=== PATIENT | female | born 1985 | race Caucasian/White ===

== ENCOUNTER 2017-11-08 13:28 | Emergency (ER) | payer MEDICAID ==
[2017-11-08 13:58] VITALS: BP 114/87
--- NOTE | 2017-11-08 14:35 | ED Physician Documentation ---
History of Present Illness - Stated complaint Stated Complaint: LEFT EYE PX - Chief complaint Chief Complaint: Heent - Additonal information Additional information: hx from pt 32 f awoke with L eye redness yesterday no trauma no dc no contacts Review of Systems Eyes: reports: Irritation PD PAST MEDICAL HISTORY - Past Medical History Past Medical History: Yes Psych: Depression - Past Surgical History Past Surgical History: No - Present Medications Home Medications: Ambulatory Orders Medication Instructions Recorded Confirmed Citalopram [CeleXA] 10 mg 11/08/17 Levothyroxine [Synthroid] 75 mcg PO QDAC 11/08/17 11/08/17 Propylene Glycol/Peg 400 1 drops LEFTEYE Q1H PRN #1 bottle 11/08/17 [Lubricant Eye Drops] - Allergies Allergies/Adverse Reactions: Allergies Allergy/AdvReac Type Severity Reaction Status Date / Time No Known Drug Allergies Allergy Verified 11/08/17 13:58 - Social History Does the pt smoke?: No Smoking Status: Never smoker Does the pt drink ETOH?: Yes Does the pt have substance abuse?: No - Immunizations Immunizations are current?: Yes PD ED PE NORMAL - Vitals Vital signs reviewed: Yes - HEENT HEENT: PERRL, EOMI, Other (L eye superior subconj hemorrhage, no ant chamer blood, no dc, no abrasion with flourescein, no FB even under lid) Results - Vitals Vitals: Vital Signs - 24 hr 11/08/17 13:56 Temperature 36.3 C L Heart Rate 77 Respiratory 18 Rate Blood Pressure 114/87 H O2 Saturation 98 Oxygen O2 Source Room air PD MEDICAL DECISION MAKING - Sepsis Event Vital Signs: Vital Signs - 24 hr 11/08/17 13:56 Temperature 36.3 C L Heart Rate 77 Respiratory 18 Rate Blood Pressure 114/87 H O2 Saturation 98 Oxygen O2 Source Room air Departure - Departure Disposition: Home, Self Care Clinical Impression: Subconjunctival hematoma Qualifiers: Laterality: left Qualified Code(s): H11.32 - Conjunctival hemorrhage, left eye Condition: Good Instructions: Subconjunctival Hemorrhage Prescriptions: Propylene Glycol/Peg 400 [Lubricant Eye Drops] 1 drops LEFTEYE Q1H PRN #1 bottle PRN Reason: eye irritation
== END 2017-11-08 14:40 | disposition home or self-care (01) ==
LOC: ED 13:28
DX: H11.32 Conjunctival hemorrhage, left eye (principal)
CPT/HCPCS: 99282; 99283

== ENCOUNTER 2017-12-28 21:29 | Emergency (ER) | payer MEDICAID ==
[2017-12-28 21:34] VITALS: BP 150/103
--- NOTE | 2017-12-28 21:36 | ED Physician Documentation ---
PD HPI URI - Stated complaint Stated Complaint: COUGH/NECK PX - Chief complaint Chief Complaint: General - History obtained from History obtained from: Patient - History of Present Illness Timing - onset: How many weeks ago (2) Timing duration: Weeks (2) Timing details: Gradual onset, Waxing and waning Associated symptoms: Swollen nodes, Dry cough (has had cough for 2 weeks and past 1-2 days is having right neck pain with coughing.). No: Fever, Ear pain Contributing factors: No: Sick contact, COPD / asthma Similar symptoms before: Has not had sx before Recently seen: Not recently seen Review of Systems Constitutional: denies: Fever, Chills, Myalgias Eyes: denies: Loss of vision Nose: reports: Congestion. denies: Rhinorrhea / runny nose Throat: denies: Sore throat Respiratory: reports: Dyspnea, Cough GI: denies: Nausea, Vomiting, Diarrhea Skin: denies: Rash, Lesions Neurologic: denies: Altered mental status, Headache PD PAST MEDICAL HISTORY - Past Medical History Cardiovascular: None Respiratory: None Neuro: None Psych: Depression - Past Surgical History Past Surgical History: No - Present Medications Home Medications: Ambulatory Orders Medication Instructions Recorded Confirmed Azithromycin [Zithromax] 0 mg PO DAILY #6 tablet 12/28/17 Dexamethasone [Decadron] 4 mg PO DAILY #5 tablet 12/28/17 Hydrocodone/Acetaminophen [[place] 1 each PO Q6H PRN #15 tablet 12/28/17 5-325 Tablet] Naproxen 375 mg PO BID #20 tablet 12/28/17 - Allergies Allergies/Adverse Reactions: Allergies Allergy/AdvReac Type Severity Reaction Status Date / Time No Known Drug Allergies Allergy Verified 12/28/17 21:34 - Social History Does the pt smoke?: No Smoking Status: Never smoker Does the pt drink ETOH?: Yes Does the pt have substance abuse?: No - Immunizations Immunizations are current?: Yes PD ED PE NORMAL - Vitals Vital signs reviewed: Yes - General General: Alert and oriented X 3, Well developed/nourished, Other (obese) - HEENT HEENT: Ears normal, Moist mucous membranes, Pharynx benign - Neck Neck: Supple, no meningeal sign, No adenopathy - Cardiac Cardiac: RRR, No murmur - Respiratory Respiratory: No respiratory distress, Clear bilaterally - Derm Derm: Normal color, Warm and dry - Neuro Neuro: Alert and oriented X 3, egg and spice mixer 2-12 intact, No motor deficit, Normal speech Results - Vitals Vitals: Oxygen O2 Source Room air PD MEDICAL DECISION MAKING - ED course Complexity details: considered differential, d/w patient Departure - Departure Disposition: 01 Home, Self Care Clinical Impression: Neck pain on right side Upper respiratory infection Qualifiers: URI type: unspecified URI Qualified Code(s): J06.9 - Acute upper respiratory infection, unspecified Condition: Stable Record reviewed to determine appropriate education?: Yes Instructions: ED Upper Resp Infec Abx Tx Follow-Up: [facility] [Provider Group] [facility] [Provider Group] Prescriptions: Azithromycin [Zithromax] 0 mg PO DAILY #6 tablet Dexamethasone [Decadron] 4 mg PO DAILY #5 tablet Hydrocodone/Acetaminophen [[place] 5-325 Tablet] 1 each PO Q6H PRN #15 tablet PRN Reason: Pain Naproxen 375 mg PO BID #20 tablet Comments: With the duration of your symptoms, hard to tell whether is still just viral and inflammatory or whether there may be some bacterial secondary infection. We can try some antibiotics at this point. For the inflammation component, take Decadron steroid daily for 5 days. Naproxen twice daily for the next 7-10 days for general pains and the neck pain. Add Tylenol or hydrocodone if needed for pain or cough. Your neck pain seems muscular and is relatively common with coughing and upper respiratory illnesses. Clinically you do not appear any concern for meningitis. Discharge Date/Time: 12/28/17 22:18
[2017-12-28] MEDS ORDERED: CHERRY SYRUP 10 ML UDC PO ONE (22:08)
[2017-12-28] MEDS: DEXAMETHASONE 10 MG/ML VIAL PO STA (22:10)
[2017-12-28] MEDS: NAPROXEN 250 MG TABLET PO STA (22:13)
[2017-12-28] MEDS: AZITHROMYCIN 250 MG TABLET PO STA (22:13)
[2017-12-28] MEDS: HYDROcod/ACET 5/325 Prepack 4 PO STA (22:14)
== END 2017-12-28 22:18 | disposition home or self-care (01) ==
LOC: ED 21:29
DX: M54.2 Cervicalgia (principal); J06.9 Acute upper respiratory infection, unspecified
CPT/HCPCS: 99283

== ENCOUNTER 2018-01-02 12:37 | Emergency (ER) | payer MEDICAID ==
--- NOTE | 2018-01-02 13:02 | ED Physician Documentation ---
PD HPI NECK PAIN - Stated complaint Stated Complaint: NECK PX - Chief complaint Chief Complaint: Back Pain - History obtained from History obtained from: Patient - History of Present Illness Timing - onset: How many weeks ago (3) Timing - details: Gradual onset, Still present, Intermittant Location: Right Quality: Pain, Similar to prior episodes Associated symptoms: Incontinent of urine. No: Fever, Weakness, Numbness, Hematuria Improves with: Nothing Worsened by: Movement Contributing factors: No: Lifting, Twisting, Trauma, Anticoagulated Similar symptoms before: Diagnosis Recently seen: Emergency Dept - Additional information Additional information: 32-year-old female with history of and cholecystectomy here with com plaint of right-sided neck pain the past 3 weeks. Patient stated she woke up with this. She denies any trauma. Patient claimed that she had this problem before when she is sick she usually have some neck discomfort. She stated she was sick with coughing and upper respiratory infection when her neck pain started 3 weeks ago.Patient claims she was here in the emergency room for the same a couple of days ago and was discharged on Vicodin without relief. She is right-hand dominant. Review of Systems Ten Systems: 10 systems reviewed and negative Constitutional: denies: Fever, Chills, Myalgias Cardiac: denies: Chest pain / pressure Respiratory: denies: Dyspnea Skin: denies: Rash Musculoskeletal: reports: Neck pain. 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 - Present Medications Home Medications: Ambulatory Orders Medication Instructions Recorded Confirmed Azithromycin [Zithromax] 0 mg PO DAILY #6 tablet 12/28/17 01/02/18 Dexamethasone [Decadron] 4 mg PO DAILY #5 tablet 12/28/17 01/02/18 Hydrocodone/Acetaminophen [[place] 1 each PO Q6H PRN #15 tablet 12/28/17 01/02/18 5-325 Tablet] Naproxen 375 mg PO BID #20 tablet 12/28/17 01/02/18 Cyclobenzaprine [Flexeril] 10 mg PO TID PRN #20 tablet 01/02/18 Lidocaine Patch 5% [Lidoderm Patch] 1 each PATCH DAILY PRN #5 patch 01/02/18 MDD 1 - Allergies Allergies/Adverse Reactions: Allergies Allergy/AdvReac Type Severity Reaction Status Date / Time No Known Drug Allergies Allergy Verified 01/02/18 12:49 - Social History Does the pt smoke?: No Smoking Status: Never smoker Does the pt drink ETOH?: Yes Does the pt have substance abuse?: No - Immunizations Immunizations are current?: Yes PD ED PE NORMAL - Vitals Vital signs reviewed: Yes - General General: Alert and oriented X 3, No acute distress, Well developed/nourished, Other (Obese) - HEENT HEENT: Atraumatic, PERRL, EOMI, Moist mucous membranes, Pharynx benign - Neck Neck: Supple, no meningeal sign, No bony TTP, No adenopathy, Other (No midline tenderness. No swelling. Full range of motion. Positive point tenderness on the right trapezius muscle.) - Cardiac Cardiac: RRR, No murmur - Respiratory Respiratory: No respiratory distress, Clear bilaterally - Abdomen Abdomen: Normal bowel sounds, Soft, Non tender, Non distended - Derm Derm: Normal color, Warm and dry, No rash - Extremities Extremities: No deformity, No tenderness to palpate, Normal ROM s pain, No edema - Neuro Neuro: Alert and oriented X 3, No motor deficit, No sensory deficit - Psych Psych: Normal mood, Normal affect Results - Vitals Vitals: Vital Signs - 24 hr 01/02/18 12:42 Temperature 36.7 C Heart Rate 89 Respiratory 18 Rate Blood Pressure 146/83 H O2 Saturation 99 Oxygen O2 Source Room air - Labs Labs: Laboratory Tests 01/02/18 13:01 Ur Specific [place] >=1.030 H Urine HCG, Qual NEGATIVE PD MEDICAL DECISION MAKING - ED course Complexity details: reviewed results, re-evaluated patient ([id number] sitting in the chair in no acute distress and nontoxic appearing. Discussed her x-ray results. Emphasize posture. She will continue her prescribed NSAIDs. We will discharged on Flexeril and lidocaine patch. Instructed to maintain safety while on Flexeril. Instructed to follow-up with PCP in a couple of weeks and get a referral to a spine doctor for outpatient MRI as needed. She will return to the emergency room if worse.), considered differential (Torticollis, muscle strain, arthritis), d/w patient Departure - Departure Disposition: 01 Home, Self Care Clinical Impression: Neck pain on right side, Muscle strain Condition: Stable Instructions: ED Spasm Muscle, ED Neck Pain No Trauma Prescriptions: Cyclobenzaprine [Flexeril] 10 mg PO TID PRN #20 tablet PRN Reason: Spasms Lidocaine Patch 5% [Lidoderm Patch] 1 each PATCH DAILY PRN #5 patch MDD 1 PRN Reason: Pain Comments: Continue the prescribed naproxen. Take the Flexeril and lidocaine patch as prescribed. Monitor your posture. Avoid heavy lifting.Follow-up with your primary doctor for reevaluation in a couple of weeks and referral to a spine doctor as needed. If worse return to the emergency room.
[2018-01-02 13:15] LABS: HCG UR QUAL NEGATIVE
--- NOTE | 2018-01-02 14:10 | XRAY Report ---
Reason: right sided pain 3 weeks, nontraumatic Procedure Date: 01/02/2018 Accession Number: [id number] / [id number] Procedure: XR - Cervical Spine 2 View CPT Code: FULL RESULT: EXAM: CERVICAL SPINE RADIOGRAPHY EXAM DATE: 01/02/2018 01:46 PM. CLINICAL HISTORY: Right sided pain 3 weeks, nontraumatic. COMPARISONS: None. TECHNIQUE: 3 views. FINDINGS: Alignment: Reversal of normal cervical curvature with mild kyphosis. Levoscoliosis Bones: The cervical vertebral bodies and posterior elements are well visualized from the skull base through C7-T1. No fractures or bone lesions. Disks: Normal. Disk heights are maintained. Facets: No degenerative disease. Soft Tissues: Normal. No prevertebral soft tissue swelling. The visualized lung apices are clear. IMPRESSION: Reversal normal cervical curvature and levoscoliosis otherwise unremarkable cervical spine. RADIA
[2018-01-02 14:28] VITALS: BP 139/91
== END 2018-01-02 14:23 | disposition home or self-care (01) ==
LOC: ED 12:37
DX: S16.1XXA Strain of muscle, fascia and tendon at neck level, initial encounter (principal); X58.XXXA Exposure to other specified factors, initial encounter
CPT/HCPCS: 72040; 81025; 99283

== ENCOUNTER 2018-02-24 08:00 | Outpatient (CLI) | payer MEDICAID ==
[2018-02-24 12:34] LABS: ALBUMIN 3.9 g/dL (3.2-5.5); ALBUMIN/GLOBULIN RATIO 1.2 (1.0-2.2); ALKALINE PHOSPHATASE 65 IU/L (42-121); ALT ALANINE AMINOTRANSFERASE 19 IU/L (10-60); AST ASPARTATE AMINOTRANSFERASE 15 IU/L (10-42); BILIRUBIN,TOTAL 0.6 mg/dL (0.2-1.0); BUN - BLOOD UREA NITROGEN 16 mg/dL (6-20); CALCIUM 8.8 mg/dL (8.5-10.3); CARBON DIOXIDE - CO2 27 mmol/L (21-32); CHLORIDE 100 mmol/L (101-111); CHOL/HDL RATIO 3.7 (<4.4); CHOLESTEROL 183 mg/dL; CREATININE 0.7 mg/dL (0.4-1.0); GFR - MDRD 96 (>89); GLUCOSE 93 mg/dL (70-100); HDL CHOLESTEROL 50 mg/dL; LDL CHOLESTEROL,CALCULATED 112 mg/dL; LDL/HDL RATIO 2.2 (<4.4); SODIUM 136 mmol/L (135-145); TOTAL PROTEIN 7.2 g/dL (6.7-8.2); VLDL CHOLESTEROL 21 mg/dL
[2018-02-24 12:39] LABS: HB2 TOTAL 13.8 g/dL; HEMOGLOBIN A1C 0.49 g/dL; HEMOGLOBIN A1C % 5.4 % (4.6-6.2)
[2018-02-24 12:45] LABS: THYROID STIMULATING HORMONE 2.79 uIU/mL (0.34-5.60)
[2018-02-24 12:56] LABS: FOLATE 7.2 ng/mL (5.90 - >24.8)
[2018-02-24 12:59] LABS: BASOPHILS % (AUTO) 0.2 %; EOSINOPHILS # (AUTO) 0.1 10^3/uL (0.0-0.7); EOSINOPHILS % (AUTO) 1.2 %; HGB - HEMOGLOBIN 13.3 g/dL (12.0-16.0); LYMPHOCYTES % (AUTO) 25.7 %; MEAN CORPUSCULAR HEMOGLOBIN 30.9 pg (27.0-31.0); MEAN CORPUSCULAR HGB CONC 34.4 g/dL (32.0-36.0); MEAN CORPUSCULAR VOLUME 90.1 fL (81.0-99.0); MEAN PLATELET VOLUME 8.7 fL (7.9-10.8); MONOCYTES # (AUTO) 0.4 10^3/uL (0.0-1.0); MONOCYTES % (AUTO) 5.5 %; NEUTROPHILS # (AUTO) 5.3 10^3/uL (1.5-6.6); NEUTROPHILS % (AUTO) 67.4 %; PLT - PLATELET COUNT 336 10^3/uL (130-450); RED BLOOD COUNT 4.29 10^6/uL (4.20-5.40); WHITE BLOOD COUNT 7.9 x10^3/uL (4.8-10.8)
== END 2018-02-24 23:59 | disposition home or self-care (01) ==
LOC: LAB.N 08:00
PROVIDERS: ATTEND Nurse Practitioner
DX: Z00.00 Encounter for general adult medical examination without abnormal findings (principal); R73.03 Prediabetes; R03.0 Elevated blood-pressure reading, without diagnosis of hypertension; E55.9 Vitamin D deficiency, unspecified; R53.83 Other fatigue; Z13.9 Encounter for screening, unspecified
CPT/HCPCS: 36415; 80053; 80061; 82043; 82306; 82607; 82746; 83036; 83721; 84443; 85025

== ENCOUNTER 2018-05-15 16:15 | Emergency (ER) | payer MEDICAID ==
[2018-05-15 16:22] VITALS: BP 121/90
--- NOTE | 2018-05-15 16:35 | ED Physician Documentation ---
PD HPI FEMALE - Stated complaint Stated Complaint: FEMALE - Chief complaint Chief Complaint: General - History obtained from History obtained from: Patient - History of Present Illness Timing - onset: Last night Timing - duration: Hours Timing - details: Abrupt onset, Still present Associated symptoms: Pelvic pain, Other (retained tampon) Contributing factors: No: Similar symptoms before: Diagnosis (retained tampon) Recently seen: Not recently seen - Additional information Additional information: 33-year-old female was in her usual state of health she had intercourse last night forgetting that she had her tampon in place and she is not been able to retrieve the tampon. She is come in this morning with some pelvic cramping. 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 - Present Medications Home Medications: Ambulatory Orders Medication Instructions Recorded Confirmed Azithromycin [Zithromax] 0 mg PO DAILY #6 tablet 12/28/17 01/02/18 Dexamethasone [Decadron] 4 mg PO DAILY #5 tablet 12/28/17 01/02/18 Hydrocodone/Acetaminophen [[place] 1 each PO Q6H PRN #15 tablet 12/28/17 01/02/18 5-325 Tablet] Naproxen 375 mg PO BID #20 tablet 12/28/17 01/02/18 Cyclobenzaprine [Flexeril] 10 mg PO TID PRN #20 tablet 01/02/18 Lidocaine Patch 5% [Lidoderm Patch] 1 each PATCH DAILY PRN #5 patch 01/02/18 MDD 1 - Allergies Allergies/Adverse Reactions: Allergies Allergy/AdvReac Type Severity Reaction Status Date / Time No Known Drug Allergies Allergy Verified 01/02/18 12:49 - Social History Does the pt smoke?: No Smoking Status: Never smoker Does the pt drink ETOH?: Yes Does the pt have substance abuse?: No - Immunizations Immunizations are current?: Yes PD ED PE NORMAL - Vitals Vital signs reviewed: Yes (hypertensive mild ) - General General: Alert and oriented X 3, No acute distress, Well developed/nourished - HEENT HEENT: Atraumatic, PERRL, EOMI - Respiratory Respiratory: No respiratory distress - Female Female : Gift Manager present (Tri), Other (There is a retained tampon intact that is removed from the vaginal fornix with ringed forceps. There is no odor. ) - Derm Derm: Normal color, Warm and dry, No rash - Extremities Extremities: No deformity, No edema Results - Vitals Vitals: Vital Signs - 24 hr 05/15/18 16:20 Temperature 36.3 C L Heart Rate 92 Respiratory 16 Rate Blood Pressure 121/90 H O2 Saturation 100 Oxygen O2 Source Room air PD MEDICAL DECISION MAKING - ED course Complexity details: reviewed old records, considered differential, d/w patient ED course: 33-year-old female with a retained tampon has the tampon easily removed there is no odor to the tampon and patient tolerates this well. Departure - Departure Disposition: 01 Home, Self Care Clinical Impression: Retained tampon Qualifiers: Encounter type: initial encounter Qualified Code(s): T19.2XXA - Foreign body in vulva and vagina, initial encounter Condition: Stable Instructions: Tampons Sanitary Pads Teen Follow-Up: Vaishnavi Barkley DNP [Primary Care Provider] -
== END 2018-05-15 16:43 | disposition home or self-care (01) ==
LOC: ED 16:15
DX: T19.2XXA Foreign body in vulva and vagina, initial encounter (principal); X58.XXXA Exposure to other specified factors, initial encounter
CPT/HCPCS: 99282; 99283

== ENCOUNTER 2018-07-19 08:00 | Outpatient (CLI) | payer MEDICAID ==
[2018-07-19 20:02] LABS: BILIRUBIN,URINE NEGATIVE (NEGATIVE); GLUCOSE, URINE (UA) NEGATIVE (NEGATIVE); KETONES,URINE (UA) TRACE mg/dL (NEGATIVE); LEUKOCYTE ESTERASE, URINE TRACE (NEGATIVE); NITRITE,URINE NEGATIVE (NEGATIVE); OCCULT BLOOD,URINE TRACE-INTA (NEGATIVE); PROTEIN,URINE NEGATIVE (NEGATIVE); UROBILINOGEN,URINE 0.2 (NORMAL) E.U./dL (NORMAL)
[2018-07-19 20:07] LABS: CLARITY,URINE HAZY (CLEAR)
[2018-07-19 20:10] LABS: BACTERIA,URINE Many /HPF (None Seen); RBC,URINE 0-5 /HPF (0-5); SQUAMOUS EPITHELIAL CELL,UR MANY Squamous (<= Few)
== END 2018-07-19 23:59 | disposition home or self-care (01) ==
LOC: LAB.R 08:00
PROVIDERS: ATTEND Physician Assistant Medical
DX: R82.90 Unspecified abnormal findings in urine (principal)
CPT/HCPCS: 81001; 81003; 87086

== ENCOUNTER 2018-08-01 09:08 | Outpatient (CLI) | payer MEDICAID ==
--- NOTE | 2018-08-02 00:01 | Ultrasound Report ---
Reason: TEST POSITIVE Procedure Date: 08/01/2018 Accession Number: [id number] / [id number] Procedure: US - OB First Trimester CPT Code: FULL RESULT: EXAM: FIRST TRIMESTER OBSTETRIC ULTRASOUND (LESS THAN 11 WEEKS). EXAM DATE: 08/01/2018 09:21 AM. CLINICAL HISTORY: Positive test with unsure dates. LMP: 05/17/2018. COMPARISONS: None. TECHNIQUE: Transabdominal ultrasound examination with static image documentation. Patient refused transvaginal imaging. CLINICAL DATES: EGA 10 weeks 6 days with BRYANT 02/21/2019 based on LMP. ASSESSMENT: Gestational Sac: Single intrauterine. Embryo: CRL (crown-rump length) 30.7 mm = weeks/days. Cardiac activity: 154 beats per minute. Yolk sac: 5 mm. Amniotic fluid: Not accurately assessed at this gestational age. Early placenta: Posterior placenta without gross previa or abruption. Other: No perigestational fluid collection demonstrated. MATERNAL STRUCTURES: Uterus: Anteverted. Unremarkable. Cervix: Closed. Right Ovary/Adnexa: Ovary not seen. No adnexal abnormality. Limitation secondary to bowel gas. Left Ovary/Adnexa: The ovary measures 2.6 x 1.8 x 2.3 cm, volume 5.5 cc. Unremarkable. Free Fluid: None. Other: Study limited by body habitus. IMPRESSION: 1. Single viable intrauterine at EGA 10 weeks 0 days with BRYANT 02/27/2019 based on crown-rump length, which is concordant with clinical dates. 2. Assigned dating is BRYANT 02/21/2019 based on LMP. 3. No subchorionic hemorrhage or other complications. 4. Right ovary not seen. Normal left ovary. Normal bilateral adnexa. RADIA
== END 2018-08-01 09:09 | disposition home or self-care (01) ==
LOC: DI 09:08
PROVIDERS: ATTEND Obstetrics & Gynecology
DX: Z32.01 Encounter for pregnancy test, result positive (principal)
CPT/HCPCS: 76801

== ENCOUNTER 2018-08-06 08:00 | Outpatient (CLI) | payer MEDICAID ==
[2018-08-06 18:34] LABS: CANDIDA GROUP DNA NEGATIVE (NEGATIVE); CANDIDA KRUSEI DNA NEGATIVE (NEGATIVE); TRICHOMONAS VAGINALIS DNA NEGATIVE (NEGATIVE)
[2018-08-06 20:06] LABS: TRICHOMONAS VAGINALIS DNA NEGATIVE (NEGATIVE)
== END 2018-08-06 23:59 | disposition home or self-care (01) ==
LOC: LAB.R 08:00
PROVIDERS: ATTEND Obstetrics & Gynecology
DX: O09.91 Supervision of high risk pregnancy, unspecified, first trimester (principal)
CPT/HCPCS: 87491; 87591; 87661; 87801

== ENCOUNTER 2018-09-06 08:00 | Outpatient (CLI) | payer MEDICAID ==
[2018-09-06 18:41] LABS: BASOPHILS % (AUTO) 0.1 %; EOSINOPHILS # (AUTO) 0.1 10^3/uL (0.0-0.7); EOSINOPHILS % (AUTO) 0.9 %; LYMPHOCYTES # (AUTO) 2.2 10^3/uL (1.5-3.5); MEAN CORPUSCULAR HEMOGLOBIN 29.7 pg (27.0-31.0); MEAN CORPUSCULAR HGB CONC 32.2 g/dL (32.0-36.0); MEAN CORPUSCULAR VOLUME 92.3 fL (81.0-99.0); MEAN PLATELET VOLUME 10.7 fL (7.9-10.8); MONOCYTES # (AUTO) 0.4 10^3/uL (0.0-1.0); MONOCYTES % (AUTO) 5.6 %; NEUTROPHILS % (AUTO) 65.1 %; PLT - PLATELET COUNT 273 10^3/uL (130-450); RED BLOOD COUNT 4.04 10^6/uL (4.20-5.40); RED CELL DISTRIBUTION WIDTH 14.8 % (12.0-15.0); WHITE BLOOD COUNT 7.7 x10^3/uL (4.8-10.8)
[2018-09-06 18:58] LABS: BILIRUBIN,URINE NEGATIVE (NEGATIVE); GLUCOSE, URINE (UA) NEGATIVE (NEGATIVE); KETONES,URINE (UA) NEGATIVE (NEGATIVE); LEUKOCYTE ESTERASE, URINE NEGATIVE (NEGATIVE); NITRITE,URINE NEGATIVE (NEGATIVE); OCCULT BLOOD,URINE NEGATIVE (NEGATIVE); PROTEIN,URINE NEGATIVE (NEGATIVE); UROBILINOGEN,URINE 0.2 (NORMAL) E.U./dL (NORMAL)
[2018-09-06 19:19] LABS: BACTERIA,URINE Few /HPF (None Seen); CLARITY,URINE CLEAR (CLEAR); CRYSTALS,URINE 6-10 Calcium Oxalate /LPF; RBC,URINE None Seen /HPF (0-5); SQUAMOUS EPITHELIAL CELL,UR MANY Squamous (<= Few)
[2018-09-06 20:43] LABS: HB2 TOTAL 12.8 g/dL
[2018-09-06 20:44] LABS: HEMOGLOBIN A1C 0.46 g/dL; HEMOGLOBIN A1C % 5.4 % (4.6-6.2)
[2018-09-07 15:16] LABS: HIV AG/AB 4TH GEN NON-REACTIVE (NON-REACTIVE)
[2018-09-07 15:27] LABS: HEPATITIS B SURFACE ANTIGEN NON-REACTIVE (NON-REACTIVE)
[2018-09-07 15:28] LABS: HEPATITIS C ANTIBODY NON-REACTIVE (NON-REACTIVE)
== END 2018-09-06 23:59 | disposition home or self-care (01) ==
LOC: LAB.N 08:00
PROVIDERS: ATTEND Obstetrics & Gynecology
DX: O09.91 Supervision of high risk pregnancy, unspecified, first trimester (principal)
CPT/HCPCS: 36415; 81001; 81599; 83036; 85025; 86592; 86762; 86803; 86850; 86900; 86901; 87086; 87340; 87389

== ENCOUNTER 2018-10-15 10:29 | Outpatient (CLI) | payer MEDICAID ==
--- NOTE | 2018-10-19 11:08 | Ultrasound Report ---
Reason: SCREENING Procedure Date: 10/15/2018 Accession Number: [id number] / [id number] Procedure: US - OB Detailed Eval CPT Code: FULL RESULT: EXAM: COMPLETE OBSTETRICAL ULTRASOUND EXAM DATE: 10/15/2018 06:32 PM. CLINICAL HISTORY: anatomic survey. COMPARISON: OB FIRST TRIMESTER 08/01/2018 9:21 AM. TECHNIQUE: Real-time sonographic evaluation of the fetus performed by the sign manufacturer. Multiple territory account representative static images were saved for review. DATING: Established EGA 20 weeks 5 days with BRYANT 02/27/2019 based on ultrasound of 08/01/2018. EGA 20 weeks 4 days with BRYANT 02/28/2019 based on the current ultrasound. GENERAL EVALUATION Alfaro . Cardiac activity: 130 bpm. movement: Present. Presentation: Transverse, head maternal left.. Placenta: Posterior position. No evidence for previa. Umbilical cord: 3 vessel cord. Central placental cord origin. Amniotic fluid: Subjectively normal. BIOMETRY Bi-Parietal Diameter (BPD): 4.8 cm, 20 weeks 3 days Head Circumference (HC): 18.1 cm, 20 weeks 4 days Abdominal Circumference (AC): 16.5 cm, 21 weeks 4 days Femur Length (FL): 3.4 cm, 20 weeks 5 days Estimated Weight: 395 g, 63rd percentile for 20 weeks 5 days. ANATOMY Assessment of anatomy is limited due to patient body habitus and position. The intracranial structures, abdominal wall, and kidneys were seen and grossly no abnormality is identified. The facial structures, heart and outflow tracts, stomach, diaphragm, cord insertion, spine, bladder, and extremities are not well seen. Suggest follow-up ultrasound in 2-3 weeks. MATERNAL STRUCTURES Uterus: Unremarkable. Cervix: Long and closed. Transabdominal length 7 cm. Right ovary/adnexa: Unremarkable. Left ovary/adnexa: Unremarkable. Free fluid: None. IMPRESSION: 1. Alfaro intrauterine with gestational age 20 weeks 5 days based on ultrasound of 08/01/2018. 2. Estimated weight is within expected limits for assigned dating. 3. Limited anatomic survey. Suggest follow-up survey in 2-3 weeks. RADIA
== END 2018-10-15 10:30 | disposition home or self-care (01) ==
LOC: DI 10:29
PROVIDERS: ATTEND Obstetrics & Gynecology
DX: Z36.89 Encounter for other specified antenatal screening (principal)
CPT/HCPCS: 76811

== ENCOUNTER 2018-11-05 09:05 | Outpatient (CLI) | payer MEDICAID ==
--- NOTE | 2018-11-05 16:13 | Ultrasound Report ---
Reason: INCOMP FAS, SUPER HIGH RISK Procedure Date: 11/05/2018 Accession Number: [id number] / [id number] Procedure: US - OB F/U or Repeat CPT Code: FULL RESULT: EXAM: OB F/U or Repeat DATE: 11/05/2018 2:39 PM CLINICAL HISTORY: Prior incomplete anatomic survey. For reassessment. TECHNIQUE: Real-time scanning was performed with passenger relations representative static images obtained. COMPARISON: 10/15/2018 Dating: Physician's stated 23 weeks 5 days, BRYANT 02/27/2019. By first ultrasound of 08/01/2018 23 weeks 5 days, BRYANT 02/27/2019. Findings: Limited study limited by patient body habitus. biometrics: Not performed today. heart rate 146 bpm. movement present. Variable presentation. Posterior placenta. TAMIA: Not measured. anatomy seen today includes the stomach, diaphragm, 3 vessel cord and cord insertion, urinary bladder, and all 4 extremities. The facial structures, heart and outflow tracts, and spine are still not well imaged. Impression: Single intrauterine gestation 23 weeks 5 days by established BRYANT. anatomy seen today includes the stomach, diaphragm, 3 vessel cord and cord insertion, urinary bladder, and all 4 extremities. No anomalies are identified. The facial structures, heart and outflow tracts, and spine are still not well seen.
== END 2018-11-05 09:06 | disposition home or self-care (01) ==
LOC: DI 09:05
PROVIDERS: ATTEND Obstetrics & Gynecology
DX: O09.92 Supervision of high risk pregnancy, unspecified, second trimester (principal); Z3A.23 23 weeks gestation of pregnancy
CPT/HCPCS: 76816

== ENCOUNTER 2018-12-08 14:12 | Outpatient (CLI) | payer MEDICAID ==
[2018-12-08 18:39] LABS: HGB - HEMOGLOBIN 10.9 g/dL (12.0-16.0); MEAN CORPUSCULAR HEMOGLOBIN 31.4 pg (27.0-31.0); MEAN CORPUSCULAR HGB CONC 32.8 g/dL (32.0-36.0); MEAN CORPUSCULAR VOLUME 95.7 fL (81.0-99.0); MEAN PLATELET VOLUME 10.4 fL (7.9-10.8); RED BLOOD COUNT 3.47 10^6/uL (4.20-5.40); RED CELL DISTRIBUTION WIDTH 14.2 % (12.0-15.0); WHITE BLOOD COUNT 9.9 x10^3/uL (4.8-10.8)
== END 2018-12-08 23:59 | disposition home or self-care (01) ==
LOC: LAB.N 14:12
PROVIDERS: ATTEND Obstetrics & Gynecology
DX: O09.91 Supervision of high risk pregnancy, unspecified, first trimester (principal)
CPT/HCPCS: 36415; 82950; 85027

== ENCOUNTER 2018-12-10 13:48 | Outpatient (CLI) | payer MEDICAID ==
[2018-12-10 18:44] LABS: HGB - HEMOGLOBIN 10.2 g/dL (12.0-16.0); MEAN CORPUSCULAR HEMOGLOBIN 30.2 pg (27.0-31.0); MEAN CORPUSCULAR HGB CONC 32.1 g/dL (32.0-36.0); MEAN CORPUSCULAR VOLUME 94.1 fL (81.0-99.0); MEAN PLATELET VOLUME 10.3 fL (7.9-10.8); RED BLOOD COUNT 3.38 10^6/uL (4.20-5.40); RED CELL DISTRIBUTION WIDTH 14.4 % (12.0-15.0); WHITE BLOOD COUNT 8.9 x10^3/uL (4.8-10.8)
[2018-12-10 18:54] LABS: ALBUMIN 2.6 g/dL (3.2-5.5); ALBUMIN/GLOBULIN RATIO 0.7 (1.0-2.2); BILIRUBIN,TOTAL 0.5 mg/dL (0.2-1.0); CALCIUM 8.6 mg/dL (8.5-10.3); CREATININE 0.5 mg/dL (0.4-1.0); TOTAL PROTEIN 6.3 g/dL (6.7-8.2)
== END 2018-12-10 23:59 | disposition home or self-care (01) ==
LOC: LAB.N 13:48
PROVIDERS: ATTEND Obstetrics & Gynecology
DX: O13.9 Gestational [pregnancy-induced] hypertension without significant proteinuria, unspecified trimester (principal)
CPT/HCPCS: 36415; 80053; 85027

== ENCOUNTER 2019-01-21 10:32 | Outpatient (CLI) | payer MEDICAID ==
[2019-01-21 14:41] LABS: HGB - HEMOGLOBIN 10.5 g/dL (12.0-16.0); MEAN CORPUSCULAR HEMOGLOBIN 31.2 pg (27.0-31.0); MEAN CORPUSCULAR HGB CONC 32.9 g/dL (32.0-36.0); MEAN CORPUSCULAR VOLUME 94.7 fL (81.0-99.0); RED BLOOD COUNT 3.37 10^6/uL (4.20-5.40); RED CELL DISTRIBUTION WIDTH 14.6 % (12.0-15.0); WHITE BLOOD COUNT 7.9 x10^3/uL (4.8-10.8)
[2019-01-21 15:02] LABS: ALBUMIN 2.6 g/dL (3.2-5.5); ALBUMIN/GLOBULIN RATIO 0.7 (1.0-2.2); BILIRUBIN,TOTAL 0.2 mg/dL (0.2-1.0); CALCIUM 8.9 mg/dL (8.5-10.3); CREATININE 0.6 mg/dL (0.4-1.0); TOTAL PROTEIN 6.2 g/dL (6.7-8.2)
[2019-01-21 15:45] LABS: CREATININE,URINE 129.2 mg/dL; PROTEIN/CREATININE RATIO,URINE 0.1 (<=0.2)
== END 2019-01-21 23:59 | disposition home or self-care (01) ==
LOC: LAB.R 10:32
PROVIDERS: ATTEND Obstetrics & Gynecology
DX: O09.90 Supervision of high risk pregnancy, unspecified, unspecified trimester (principal); O13.9 Gestational [pregnancy-induced] hypertension without significant proteinuria, unspecified trimester; Z3A.00 Weeks of gestation of pregnancy not specified
CPT/HCPCS: 80053; 82570; 84156; 85027

== ENCOUNTER 2019-01-21 10:48 | Outpatient (CLI) | payer MEDICAID ==
[2019-01-21 12:50] VITALS: BP 120/67
--- NOTE | 2019-01-21 13:02 | PROCEDURE REPORT ---
- HPI Diagnosis/Indication for NST: Gestational Hypertension Current EDU 02/27/19 Gestation 34 Weeks and 5 Days 4 Para 3 Vital Signs Temperature 36.8 C 01/21/19 11:07 Heart Rate 91 01/21/19 11:07 Respiratory Rate 17 01/21/19 11:07 O2 Saturation 98 01/21/19 11:07 Temperature 36.8 C 01/21/19 11:07 Heart Rate 91 01/21/19 11:07 Respiratory Rate 17 01/21/19 11:07 Blood Pressure 120/67 01/21/19 11:15 O2 Saturation 98 01/21/19 11:07 The patient's blood pressure had been elevated in the office. She came here for an evaluation. All of her blood pressures here have been within normal limits. - NST Procedure NST Procedure Start Date 01/21/19 Start Time 10:57 Stop Time 11:30 Vibroacoustic Stimulation Used No Patient States Movement Yes - Results and Plan Findings/Impression: Her NST is reactive. This was read on 01/21/2019. Plan: The patient is going to be discharged home. She will follow-up in the office at her regularly scheduled next visit.
--- NOTE | 2019-01-21 14:40 | Ultrasound Report ---
Reason: growth scan for ghtn Procedure Date: 01/21/2019 Accession Number: [id number] / [id number] Procedure: US - OB F/U or Repeat CPT Code: Final Report FULL RESULT: EXAM: FOLLOW-UP OBSTETRICAL ULTRASOUND EXAM DATE: 01/21/2019 01:59 PM. CLINICAL HISTORY: Growth scan for ghtn. COMPARISON: OB F/U OR REPEAT 11/05/2018 9:41 AM. TECHNIQUE: Real-time sonographic evaluation of the fetus performed by the engine repairer. Additional transvaginal imaging to more accurately evaluate cervical length/placental position/etc. Multiple sales representative printing paper static images were saved for review. DATING: Established EGA 35 weeks 4 days with BRYANT 02/21/2019 based on LMP. EGA 34 weeks 5 days with BRYANT 02/27/2019 based on first ultrasound. EGA 34 weeks 6 days with BRYANT 02/26/2019 based on the current ultrasound. GENERAL EVALUATION Alfaro . Cardiac activity: 132 bpm. movement: Visualized. Presentation: Indeterminant. Placenta: Posterior position. Amniotic fluid: Normal. TAIMA 16.6 cm. MVP 6.4 cm. BIOMETRY Bi-Parietal Diameter (BPD): 8.5 cm, 34 weeks 2 days Head Circumference (HC): 30.9 cm, 34 weeks 3 days Abdominal Circumference (AC): 32.3 cm, 36 weeks 1 day Femur Length (FL): 6.7 cm, 34 weeks 3 days Estimated Weight: 2660 g, 65 percentile for age. IMPRESSION: 1. Single viable intrauterine fetus. Estimated weight 2660 g. size is within 1 day of previously established gestational age 34 weeks 5 days. TAMIA 16.6 cm. RADIA
== END 2019-01-21 13:50 | disposition home or self-care (01) ==
LOC: WFO 10:48 → FBP 10:50 → WFO 13:50
PROVIDERS: ATTEND Obstetrics & Gynecology
DX: O13.3 Gestational [pregnancy-induced] hypertension without significant proteinuria, third trimester (principal); Z3A.34 34 weeks gestation of pregnancy; O09.90 Supervision of high risk pregnancy, unspecified, unspecified trimester
CPT/HCPCS: 59025; 76816; 80053; 82570; 84156; 85027

== ENCOUNTER 2019-02-01 09:00 | Outpatient (CLI) | payer MEDICAID ==
[2019-02-01 09:58] VITALS: BP 126/85
--- NOTE | 2019-02-02 13:22 | PROCEDURE REPORT ---
- HPI Diagnosis/Indication for NST: Pre- Hypertension Current EDU 02/27/19 Gestation 36 Weeks and 2 Days 4 Para 3 Vital Signs Temperature 36.8 C 02/01/19 09:26 Heart Rate 104 H 02/01/19 09:26 Respiratory Rate 16 02/01/19 09:26 Blood Pressure 132/84 H 02/01/19 09:26 O2 Saturation 98 02/01/19 09:26 Temperature 36.8 C 02/01/19 09:26 Heart Rate 91 02/01/19 09:50 Respiratory Rate 16 02/01/19 09:50 Blood Pressure 126/85 H 02/01/19 09:50 O2 Saturation 98 02/01/19 09:50 - NST Procedure NST Procedure Start Date 02/01/19 Start Time 09:15 Stop Time 09:47 Vibroacoustic Stimulation Used No Patient States Movement Yes - Results and Plan Findings/Impression: Reactive NST Plan: Continue NST.
== END 2019-02-01 09:55 | disposition home or self-care (01) ==
LOC: WFO 09:00 → FBP 09:03 → WFO 09:55
PROVIDERS: ATTEND Obstetrics & Gynecology
DX: O10.913 Unspecified pre-existing hypertension complicating pregnancy, third trimester (principal); Z3A.36 36 weeks gestation of pregnancy
CPT/HCPCS: 59025

== ENCOUNTER 2019-02-04 08:00 | Outpatient (CLI) | payer MEDICAID ==
[2019-02-04 22:20] LABS: TRICHOMONAS VAGINALIS DNA NEGATIVE (NEGATIVE)
== END 2019-02-04 23:59 | disposition home or self-care (01) ==
LOC: LAB.R 08:00
PROVIDERS: ATTEND Obstetrics & Gynecology
DX: Z36.89 Encounter for other specified antenatal screening (principal)
CPT/HCPCS: 87491; 87591; 87661; 87797

== ENCOUNTER 2019-02-28 14:17 | Inpatient (IN) | payer MEDICAID ==
[2019-02-28 14:48] LABS: BASOPHILS % (AUTO) 0.3 %; EOSINOPHILS # (AUTO) 0.2 10^3/uL (0.0-0.7); EOSINOPHILS % (AUTO) 3.2 %; HGB - HEMOGLOBIN 11.3 g/dL (12.0-16.0); LYMPHOCYTES # (AUTO) 1.7 10^3/uL (1.5-3.5); LYMPHOCYTES % (AUTO) 23.4 %; MEAN CORPUSCULAR HEMOGLOBIN 31.8 pg (27.0-31.0); MEAN CORPUSCULAR HGB CONC 32.7 g/dL (32.0-36.0); MEAN CORPUSCULAR VOLUME 97.5 fL (81.0-99.0); MEAN PLATELET VOLUME 8.9 fL (7.9-10.8); MONOCYTES # (AUTO) 0.5 10^3/uL (0.0-1.0); MONOCYTES % (AUTO) 6.6 %; NEUTROPHILS # (AUTO) 4.6 10^3/uL (1.5-6.6); NEUTROPHILS % (AUTO) 65.4 %; PLT - PLATELET COUNT 303 10^3/uL (130-450); RED BLOOD COUNT 3.55 10^6/uL (4.20-5.40); RED CELL DISTRIBUTION WIDTH 14.6 % (12.0-15.0); WHITE BLOOD COUNT 7.1 x10^3/uL (4.8-10.8)
[2019-02-28] MEDS ORDERED: HYDROCORTISONE 1% CREAM 28 GM TUBE PR PRN (15:01)
[2019-02-28] MEDS ORDERED: WITCH HAZEL/GLYCERIN 1 PAD TOP PRN (15:01)
[2019-02-28] MEDS ORDERED: CALCIUM GLUCONATE 1000 MG/10 ML VIAL IV PRN (15:01)
[2019-02-28] MEDS ORDERED: ONDANSETRON 4 MG/2 ML VIAL IVP PRN (15:01)
[2019-02-28] MEDS ORDERED: oxyCODONE 5 MG TABLET PO PRN (15:01)
[2019-02-28 15:02] LABS: ALBUMIN 2.8 g/dL (3.2-5.5); ALBUMIN/GLOBULIN RATIO 0.8 (1.0-2.2); BILIRUBIN,TOTAL 0.2 mg/dL (0.2-1.0); CALCIUM 8.9 mg/dL (8.5-10.3); CREATININE 0.6 mg/dL (0.4-1.0); TOTAL PROTEIN 6.3 g/dL (6.7-8.2)
[2019-02-28 15:04] LABS: CREATININE,URINE 35.1 mg/dL
[2019-02-28] MEDS ORDERED: METOCLOPRAMIDE 10 MG/2 ML VIAL IVP ONE (15:08)
[2019-02-28 15:16] LABS: TOTAL PROTEIN,URINE TIMED < 6 mg/dL
[2019-02-28] MEDS ORDERED: MAGNESIUM SULFATE 2 GRAM 6 GM/150 ML BAG IV ONE (15:24)
[2019-02-28] MEDS: MAGNESIUM SULFATE 2 GRAM 2 GM/50 ML BAG IV SCH ×3 (15:45→16:22)
[2019-02-28] MEDS: ACETAMINOPHEN 500 MG TABLET PO SCH ×2 (15:48→23:45)
[2019-02-28] MEDS ORDERED: MAGNESIUM SULFATE 2 GRAM 2 GM/50 ML BAG IV SCH (16:00)
[2019-02-28] MEDS ORDERED: LACTATED RINGERS 1,000 ML IV SCH (16:00)
[2019-02-28] MEDS: IBUPROFEN 600 MG TABLET PO SCH ×2 (16:30→23:45)
[2019-02-28] MEDS: MAGNESIUM SULFATE IN WATER 20 GM/500 ML IV.SOLN IV SCH (16:48)
--- NOTE | 2019-02-28 18:47 | PROVIDER PROGRESS NOTE ---
Objective - Vital Signs/Intake & Output Vital Signs: Vital Signs x48h Temp Pulse Resp BP Pulse Ox 02/28/19 18:01 76 18 136/71 H 98 02/28/19 17:15 81 18 137/76 H 97 02/28/19 17:00 79 16 125/75 95 02/28/19 16:45 99.0 F 58 L 16 133/70 H 95 02/28/19 16:30 83 18 101/53 L 02/28/19 16:15 84 18 128/77 02/28/19 16:00 79 18 141/74 H 02/28/19 15:45 82 141/86 H 02/28/19 14:38 92 20 02/28/19 14:29 93 20 150/83 H Intake & Output: Intake & Output 02/25/19 02/26/19 02/27/19 02/28/19 23:59 23:59 23:59 23:59 Intake Total 1177.5 Output Total 1350 Balance -172.5 - Lab Results Fish Bones: 02/28/19 14:40 02/28/19 14:40 Other Labs: Lab Results x24hrs 02/28/19 02/28/19 02/28/19 Range/Units 14:40 14:40 14:25 WBC 7.1 (4.8-10.8) x10^3/uL RBC 3.55 L (4.20-5.40) 10^6/uL Hgb 11.3 L (12.0-16.0) g/dL Hct 34.6 L (37.0-47.0) % MCV 97.5 (81.0-99.0) fL MCH 31.8 H (27.0-31.0) pg MCHC 32.7 (32.0-36.0) g/dL RDW 14.6 (12.0-15.0) % Plt Count 303 (130-450) 10^3/uL MPV 8.9 (7.9-10.8) fL Neut # (Auto) 4.6 (1.5-6.6) 10^3/uL Lymph # (Auto) 1.7 (1.5-3.5) 10^3/uL [place] # (Auto) 0.5 (0.0-1.0) 10^3/uL Eos # (Auto) 0.2 (0.0-0.7) 10^3/uL Baso # (Auto) 0.0 (0.0-0.1) 10^3/uL Absolute Nucleated RBC 0.00 x10^3/uL Nucleated RBC % 0.0 /100WBC Sodium 141 (135-145) mmol/L Potassium 4.0 (3.5-5.0) mmol/L Chloride 106 (101-111) mmol/L Carbon Dioxide 28 (21-32) mmol/L Anion Gap 7.0 (6-13) BUN 9 (6-20) mg/dL Creatinine 0.6 (0.4-1.0) mg/dL Estimated GFR (MDRD) 114 (>89) Glucose 96 (70-100) mg/dL Calcium 8.9 (8.5-10.3) mg/dL Total Bilirubin 0.2 (0.2-1.0) mg/dL AST 27 (10-42) IU/L ALT 40 (10-60) IU/L Alkaline Phosphatase 99 (42-121) IU/L Total Protein 6.3 L (6.7-8.2) g/dL Albumin 2.8 L (3.2-5.5) g/dL Globulin 3.5 (2.1-4.2) g/dL Albumin/Globulin Ratio 0.8 L (1.0-2.2) Urine Creatinine 35.1 mg/dL Ur Total Protein Timed < 6 mg/dL Protein/Creatinin Ratio Not Reportable Assessment/Plan - Problem List (1) Preeclampsia Impression: S: Headache improved once mag was started, then was mild, is now gone. No other sx. O: BPs all normal since triage UOP 1300cc in the past few hours A/P: Preeclampsia variant vs. headache NOS. BP elevation could be due to either. Received reglan which could have treated the headache as well. No other preeclampsia symptoms. No proteinuria. No hx of preeclampsia with prior pregnancies with same FOB. Will continue mag for 24h and watch for any recurrence of SUÁREZ.
--- NOTE | 2019-02-28 19:10 | HISTORY & PHYSICAL EXAMINATION ---
History of Present Illness - History of Present Illness HPI Comment/Other: CC: headache HPI: Delvered on the at for a repeat-csection. Delivered there secondary to her obesity. Pt states that she received multiple spinal attempts and then had to go under general for her surgery. Didn't have a headache in the hospital. Denies headaches or elevated blood pressures this or chronically. Yesterday began having a headache which is unusual for her. It was bilateral frontal. No phonophobia or photophobia. No nausea. No upper abd pain or scotoma. Edema was bad yesterday and is improved today. Yesterday as the headache built, she took ibuprofen and tylenol. When it didn't improve, she started taking her narcotics from the . Repeated doses of narcotics have not improved the headache. Currently the headache is severe. No loss of speech, vision, or movement. BP in clinic 158/86 with large cuff. PMH: morbid obesity, depression, hypothyroid, Vitamin B12 and D de ficiencies, depression/anxiety SH: no t/e/d. PSH: x4, ultimate one with tubal ligation, cholecystectomy Allergies: NKDA Meds: PNV, ibuprofen, opiod OB: uncomplicated except for the 3 prior c-sections. and tubal ligationon 02/23/19 AVSS except for BP 150s/80s Alert, grimacing from time to time, converses easily Lungs CTA bilat Abd soft, nontender upper abd, lower abd appropriately mildly tender Incision clean, dry, intact, steri strips in place Normal motor 1+ DTR bilat patellar No clonus LE with 1+ pitting edema at ankle CBC Hct 34, plts 303 CMP: normal AST, ALT, and Cr Urine P:C ratio 0 A/P: 34yo PPD #5 s/p repeat at term. New severe headache and elevated blood pressure concerning for severe preeclampsia. Due to severity of headache, decision made to do magnesium seizure prophylaxis regardless of labs being normal or not. It is also possible that the patient has an idiopathic headache and the pain is causing BP elevation. Will mag for 24h. Reglan trial for the headache. Hourly mag checks. BMI in the 60s. Heparin 5,000U bid. May ambulate with assist. Unable to find MAILE or SCD that would fit her. well at home, recommended pumping q2-3h. With family needs, she is unable to have baby room in with her. Hypothyroid not currently on meds; TSH check PP depression on top of chronic depression and anxiety. Zoloft restart. 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 Meds/Allgy - Home Medications Home Medications: Ambulatory Orders Medication Instructions Recorded Confirmed No Known Home Medications 01/14/19 01/14/19 - Allergies Allergies/Adverse Reactions: Allergies Allergy/AdvReac Type Severity Reaction Status Date / Time No Known Drug Allergies Allergy Verified 01/14/19 12:27 Exam - Vital Signs Vital Signs: Vital Signs x48h Temp Pulse Resp BP Pulse Ox 02/28/19 18:01 76 18 136/71 H 98 02/28/19 17:15 81 18 137/76 H 97 02/28/19 17:00 79 16 125/75 95 02/28/19 16:45 99.0 F 58 L 16 133/70 H 95 02/28/19 16:30 83 18 101/53 L 02/28/19 16:15 84 18 128/77 02/28/19 16:00 79 18 141/74 H 02/28/19 15:45 82 141/86 H 02/28/19 14:38 92 20 02/28/19 14:29 93 20 150/83 H Conclusion/Plan - Lab Results Fish Bones: 02/28/19 14:40 02/28/19 14:40
[2019-02-28] MEDS ORDERED: HEPARIN 5,000 UNIT/ML VIAL SUBQ SCH (21:00)
[2019-02-28] MEDS: HEPARIN 5,000 UNIT/ML VIAL SUBQ SCH (21:12)
[2019-03-01] MEDS: SERTRALINE 50 MG TABLET PO SCH ×2 (00:29→09:11)
[2019-03-01] MEDS: DOCUSATE SODIUM 100 MG CAPSULE PO SCH ×2 (00:30→11:28)
[2019-03-01] MEDS: MAGNESIUM SULFATE IN WATER 20 GM/500 ML IV.SOLN IV SCH ×2 (02:26→12:25)
[2019-03-01] MEDS: IBUPROFEN 600 MG TABLET PO SCH ×3 (05:29→11:51)
[2019-03-01] MEDS: ACETAMINOPHEN 500 MG TABLET PO SCH ×2 (08:31→11:51)
[2019-03-01] MEDS: HEPARIN 5,000 UNIT/ML VIAL SUBQ SCH (09:11)
--- NOTE | 2019-03-01 10:24 | PROVIDER PROGRESS NOTE ---
Subjective - Subjective Subjective: S: headache 02/25, same location. No visual changes, no upper abd pain. Some increase in swelling. Feeling well overall. Eat, ambulate, urinate, pump without problems. Not much pain. Mood is "terrible" O: AVSS except for one BP 143/90. UOP 100cc/h or greater Alert, smiles, good eye contact, well-groomed, NAD Abd soft, nt/nd Incision c/d/i without erythema or induration LE with 1+ edema to ankle, pitting. 34yo PPD #6 s/p repeat at term. Undergoing mag for 24h due to new onset of severe headache unresolved with narcotics + elevated BPs. No other signs or sx of preeclampsia. Ddx is preeclampsia vs. headache causing elevated BP. Will recheck labs in a few hours. Anticipate turning off mag and if is stable for 4h she can discharge home. Tolerating mag well. Recovering from c- section well. BMI in the 60s. Heparin 5,000U bid. May ambulate with assist. SCD while in bed Baby is here for the day, continue to nurse Hypothyroid not currently on meds; TSH yesterday was normal PP depression on top of chronic depression and anxiety. Zoloft was started yesterday. Not able to delve into her mood as family entered the room. Will stop by later to explore further. She did well on celexa in the past and with her EPD score I think that it is best to put her on what has definately worked in the past. She hasn't had experience with zoloft. Prior dose of celexa was 40. Will do 20mg for 3d and then up to 40. Morbid obesity, pt would like a bypass, will refer. Objective - Vital Signs/Intake & Output Vital Signs: Vital Signs x48h Temp Pulse Resp BP Pulse Ox 03/01/19 08:08 98.2 F 81 18 128/82 H 99 03/01/19 06:00 97.5 F L 98 18 143/90 H 99 03/01/19 04:01 98.1 F 84 14 120/76 98 Intake & Output: Intake & Output 02/26/19 02/27/19 02/28/19 03/01/19 23:59 23:59 23:59 23:59 Intake Total 1177.5 1481.667 Output Total 9966 0230 Balance -1524.5 -268.333 - Lab Results Fish Bones: 02/28/19 14:40 02/28/19 14:40 Other Labs: Lab Results x24hrs 02/28/19 02/28/19 02/28/19 Range/Units 14:40 14:40 14:40 WBC 7.1 (4.8-10.8) x10^3/uL RBC 3.55 L (4.20-5.40) 10^6/uL Hgb 11.3 L (12.0-16.0) g/dL Hct 34.6 L (37.0-47.0) % MCV 97.5 (81.0-99.0) fL MCH 31.8 H (27.0-31.0) pg MCHC 32.7 (32.0-36.0) g/dL RDW 14.6 (12.0-15.0) % Plt Count 303 (130-450) 10^3/uL MPV 8.9 (7.9-10.8) fL Neut # (Auto) 4.6 (1.5-6.6) 10^3/uL Lymph # (Auto) 1.7 (1.5-3.5) 10^3/uL [place] # (Auto) 0.5 (0.0-1.0) 10^3/uL Eos # (Auto) 0.2 (0.0-0.7) 10^3/uL Baso # (Auto) 0.0 (0.0-0.1) 10^3/uL Absolute Nucleated RBC 0.00 x10^3/uL Nucleated RBC % 0.0 /100WBC Sodium 141 (135-145) mmol/L Potassium 4.0 (3.5-5.0) mmol/L Chloride 106 (101-111) mmol/L Carbon Dioxide 28 (21-32) mmol/L Anion Gap 7.0 (6-13) BUN 9 (6-20) mg/dL Creatinine 0.6 (0.4-1.0) mg/dL Estimated GFR (MDRD) 114 (>89) Glucose 96 (70-100) mg/dL Calcium 8.9 (8.5-10.3) mg/dL Total Bilirubin 0.2 (0.2-1.0) mg/dL AST 27 (10-42) IU/L ALT 40 (10-60) IU/L Alkaline Phosphatase 99 (42-121) IU/L Total Protein 6.3 L (6.7-8.2) g/dL Albumin 2.8 L (3.2-5.5) g/dL Globulin 3.5 (2.1-4.2) g/dL Albumin/Globulin Ratio 0.8 L (1.0-2.2) TSH 1.74 (0.34-5.60) uIU/mL Urine Creatinine mg/dL Ur Total Protein Timed mg/dL Protein/Creatinin Ratio 02/28/19 Range/Units 14:25 WBC (4.8-10.8) x10^3/uL RBC (4.20-5.40) 10^6/uL Hgb (12.0-16.0) g/dL Hct (37.0-47.0) % MCV (81.0-99.0) fL MCH (27.0-31.0) pg MCHC (32.0-36.0) g/dL RDW (12.0-15.0) % Plt Count (130-450) 10^3/uL MPV (7.9-10.8) fL Neut # (Auto) (1.5-6.6) 10^3/uL Lymph # (Auto) (1.5-3.5) 10^3/uL [place] # (Auto) (0.0-1.0) 10^3/uL Eos # (Auto) (0.0-0.7) 10^3/uL Baso # (Auto) (0.0-0.1) 10^3/uL Absolute Nucleated RBC x10^3/uL Nucleated RBC % /100WBC Sodium (135-145) mmol/L Potassium (3.5-5.0) mmol/L Chloride (101-111) mmol/L Carbon Dioxide (21-32) mmol/L Anion Gap (6-13) BUN (6-20) mg/dL Creatinine (0.4-1.0) mg/dL Estimated GFR (MDRD) (>89) Glucose (70-100) mg/dL Calcium (8.5-10.3) mg/dL Total Bilirubin (0.2-1.0) mg/dL AST (10-42) IU/L ALT (10-60) IU/L Alkaline Phosphatase (42-121) IU/L Total Protein (6.7-8.2) g/dL Albumin (3.2-5.5) g/dL Globulin (2.1-4.2) g/dL Albumin/Globulin Ratio (1.0-2.2) TSH (0.34-5.60) uIU/mL Urine Creatinine 35.1 mg/dL Ur Total Protein Timed < 6 mg/dL Protein/Creatinin Ratio Not Reportable
[2019-03-01 15:23] LABS: BASOPHILS % (AUTO) 0.1 %; EOSINOPHILS # (AUTO) 0.3 10^3/uL (0.0-0.7); EOSINOPHILS % (AUTO) 3.7 %; HGB - HEMOGLOBIN 10.8 g/dL (12.0-16.0); LYMPHOCYTES # (AUTO) 1.5 10^3/uL (1.5-3.5); LYMPHOCYTES % (AUTO) 21.5 %; MEAN CORPUSCULAR HEMOGLOBIN 31.5 pg (27.0-31.0); MEAN CORPUSCULAR HGB CONC 32.5 g/dL (32.0-36.0); MEAN CORPUSCULAR VOLUME 96.8 fL (81.0-99.0); MEAN PLATELET VOLUME 9.1 fL (7.9-10.8); MONOCYTES # (AUTO) 0.5 10^3/uL (0.0-1.0); MONOCYTES % (AUTO) 6.9 %; NEUTROPHILS # (AUTO) 4.7 10^3/uL (1.5-6.6); NEUTROPHILS % (AUTO) 67.1 %; PLT - PLATELET COUNT 308 10^3/uL (130-450); RED BLOOD COUNT 3.43 10^6/uL (4.20-5.40); RED CELL DISTRIBUTION WIDTH 14.6 % (12.0-15.0)
[2019-03-01 16:02] LABS: ALBUMIN 2.8 g/dL (3.2-5.5); ALBUMIN/GLOBULIN RATIO 0.9 (1.0-2.2); BILIRUBIN,TOTAL 0.6 mg/dL (0.2-1.0); CALCIUM 7.3 mg/dL (8.5-10.3); CREATININE 0.6 mg/dL (0.4-1.0)
--- NOTE | 2019-03-01 16:28 | Discharge Plan ---
Discharge Plan Problem Reviewed?: Yes Disposition: Home, Self Care Diet: Regular Activity Restrictions: no lifting more than 10# Shower Restrictions: No Driving Restrictions: No No Smoking: If you smoke, Please STOP! Call for help. Follow-up with: Herminia Gill MD [Provider Admit Priv/Credential] - 1-2 Days (BP check tomorrow at [facility], or peds. Call with results by 14:00. F/u in clinic in 48h)
[2019-03-01 16:30] VITALS: BP 144/78
[2019-03-02] MEDS ORDERED: CITALOPRAM 10 MG TABLET PO SCH (09:00)
--- NOTE | 2019-03-06 18:25 | DISCHARGE SUMMARY ---
Physician: Herminia Gill MD DATE OF ADMISSION: 02/28/2019 DATE OF DISCHARGE: 03/01/2019 ADMITTING DIAGNOSES 1. Status post repeat section at term. 2. Morbid obesity. 3. Hypothyroid. 4. depression. 5. Probable severe preeclampsia. DISCHARGE DIAGNOSES 1. Severe preeclampsia, headache, resolved. 2. Morbid obesity. 3. Hypothyroid with a normal current TSH. 4. depression, treating, OPERATIONS AND PROCEDURES: None. CONSULTATIONS: None. HOSPITAL COURSE: The patient was admitted due to a severe headache and associated mild range blood p ressures. She did not have a history of preeclampsia. Her PIH labs were normal, as were her protein to creatinine ratio. However, the decision was made to perform magnesium sulfate prophylaxis due to the severity of her headache. Her neurological exam was normal. Other things in the differential i ncluded just an idiopathic headache with consequentially elevated blood pressure. She received Nanda n at the same time as her magnesium bolus. About an hour and a half following her magnesium bolus, h er headache had resolved. She was then normotensive for hours. While she was pain free, she did hav e some elevated blood pressures over 90s, which supports the atypical preeclampsia diagnosis. For her BMI of 60, she received heparin prophylaxis and SCDs. With her infant, she con tinued to pump. She was hypothyroid and her TSH was checked and found to be normal. She had postpar rose depression and was started on Zoloft and then sent home on Celexa, as she has done well on that i n the past. DISCHARGE EXAM VITAL SIGNS: The patient was afebrile with low range blood pressures. GENERAL: She is alert and smiling, in no apparent distress. ABDOMEN: Soft, not tender, and nondistended. Fundus was not palpable. Incision clean, dry, and int act and healing well. No erythema present. EXTREMITIES: There was no lower extremity edema that was appreciable. LABORATORY DATA: Repeat preeclampsia labs were normal. DISCHARGE DISPOSITION: Home. CONDITION: Good. FOLLOWUP: In 2 days for a blood pressure check with an MD. She will have her blood pressure checked tomorrow with her hadoop consultant. DISCHARGE MEDICATIONS: The only new medication is the Celexa. PRECAUTIONS: Routine postoperative and preeclampsia precautions given. TD: 03/06/2019 16:07
== END 2019-03-01 16:45 | disposition home or self-care (01) | DRG 776 ==
LOC: WFO 14:17 → FBP 14:19 → WFO 17:26 → FBP 17:27
PROVIDERS: ADMIT Obstetrics & Gynecology; ATTEND Obstetrics & Gynecology
DX: O14.15 Severe pre-eclampsia, complicating the puerperium (principal); O99.215 Obesity complicating the puerperium; E66.01 Morbid (severe) obesity due to excess calories; O99.345 Other mental disorders complicating the puerperium; F53.0 Postpartum depression; F41.9 Anxiety disorder, unspecified; O99.285 Endocrine, nutritional and metabolic diseases complicating the puerperium; E03.9 Hypothyroidism, unspecified
CPT/HCPCS: 36415; 80053; 82570; 84156; 84443; 85025; A9270; J2765; J7120; 85027

== ENCOUNTER 2019-03-01 18:34 | Outpatient (CLI) | payer MEDICAID | END 2019-03-01 18:35 | disposition critical access hospital (66) | LOC: EMS 18:34 | PROVIDERS: ATTEND Surgery | DX: O99.89 Other specified diseases and conditions complicating pregnancy, childbirth and the puerperium (principal); R42 Dizziness and giddiness; M54.9 Dorsalgia, unspecified | CPT/HCPCS: A0425; A0429 ==

== ENCOUNTER 2019-03-01 18:58 | Emergency (ER) | payer MEDICAID ==
--- NOTE | 2019-03-01 19:36 | ED Physician Documentation ---
History of Present Illness - Stated complaint Stated Complaint: POST PREECLAMPSIA - Chief complaint Chief Complaint: Neuro - Additonal information Additional information: This is a 34-year-old female with a recent delivery, who presents with headache/lightheadedness which is now resolved. Patient recently was admitted with a headache and elevated blood pressure and there was concerned for possible preeclampsia but her labs did not reveal signs of preeclampsia yesterday and she was discharged home. She did deliver via and she had an epidural attempt that failed, ultimately she had general anesthesia for the . She was having some discomfort in the site of the failed epidural sites that radiated up towards her head, but this has resolved as well. She has no weakness, numbness, or tingling. She has absolutely no headache at this time. She overall feels well and she states that earlier in the day she felt a little bit foggy headed/light-headed, and she called in to her OB office about this, and was asked to come into the ED for evaluation. She has no chest pain, no shortness of breath, no vomiting, no vision changes. Now she is feeling completely well. 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 - Present Medications Home Medications: Ambulatory Orders Medication Instructions Recorded Confirmed No Known Home Medications 01/14/19 01/14/19 - Allergies Allergies/Adverse Reactions: Allergies Allergy/AdvReac Type Severity Reaction Status Date / Time No Known Drug Allergies Allergy Unverified 03/01/19 19:00 - Social History Does the pt smoke?: No Smoking Status: Never smoker Does the pt drink ETOH?: Yes Does the pt have substance abuse?: No - Immunizations Immunizations are current?: Yes PD ED PE NORMAL - Vitals Vital signs reviewed: Yes - General General: Alert and oriented X 3, No acute distress - HEENT HEENT: Atraumatic, PERRL - Neck Neck: Supple, no meningeal sign - Cardiac Cardiac: RRR, No murmur - Respiratory Respiratory: No respiratory distress, Clear bilaterally - Abdomen Abdomen: Soft, Other (Rotund, no guarding) - Back Back: Other (There is a small amount of bruising in the lumbar spine in the region where the epidural was attempted. There is no significant midline tenderness, no other abnormalities of the back noted.) - Derm Derm: Warm and dry - Extremities Extremities: No deformity - Neuro Neuro: Alert and oriented X 3, icu tech 2-12 intact, No motor deficit, No sensory de ficit, Normal speech - Psych Psych: Normal mood, Normal affect Results - Vitals Vitals: Vital Signs - 24 hr 03/01/19 03/01/19 19:00 20:45 Temperature 36.6 C 36.8 C Heart Rate 88 71 Respiratory 16 18 Rate Blood Pressure 138/99 H 145/84 H O2 Saturation 98 98 Oxygen O2 Source Room air PD MEDICAL DECISION MAKING - ED course Complexity details: considered differential (Electrolyte abnormality, dehydration, medication side effect, migraine, post lumbar puncture headache, intracranial hemorrhage, subarachnoid hemorrhage.) ED course: On arrival patient is extremely well-appearing. Her vital signs are notable for mild hypertension of 130s over 90s, but this appears to be her recent baseline. She had a admission recently for potential preeclampsia which did not show signs of preeclampsia. And she is currently not having any headache, no vision changes, she feels well. Sounds like earlier in the day she did have a feeling of lightheadedness, and she been given return precautions with any strange feelings, this prompted her to come into the emergency department. EMS was called because she was not able to drive herself here due to the snow on the roads. She currently has no headache, and when she did have a headache it was not particularly positional, making an LP headache less likely. She has no fever, no neurologic deficit, no history of head trauma, no other red flags. I reviewed the labs from earlier today, they are unremarkable. Given the patient is asymptomatic, and has a benign exam, and reassuring labs, I highly doubt any more serious pathology such as intracranial hemorrhage at this time. Patient would like to go home, and I feel this is appropriate. I spoke with Dr. Gill, she agrees with this plan as well. I did review strict return precautions with the patient if she is having worsening symptoms, she is in agreement and patient was discharged home Departure - Departure Disposition: Home, Self Care Clinical Impression: Lightheaded Condition: Good Follow-Up: Tariq Blanco PA-C [Primary Care Provider] - Herminia Gill MD [Provider Admit Priv/Credential] - Comments: Your vital signs and labs look reassuring today, I am glad that you no longer have a headache. I think your symptoms may have been from your recent medications that you were given, Or possibly from the epidural attempts. Drink plenty of fluids, and if you are having new concerning symptoms such as severe headache, passing out, or vision changes, confusion, return to the emergency department. Otherwise please follow-up with your primary care provider. It is okay to take Tylenol and ibuprofen for discomfort. Discharge Date/Time: 03/01/19 20:47
[2019-03-01 20:46] VITALS: BP 145/84
== END 2019-03-01 20:47 | disposition home or self-care (01) ==
LOC: EDUNIT# → ED 18:58
DX: R42 Dizziness and giddiness (principal)
CPT/HCPCS: 99283

== ENCOUNTER 2020-01-15 19:05 | Emergency (ER) | payer MEDICAID ==
[2020-01-15] MEDS ORDERED: AMOX/CLAV 875 MG/125 MG TABLET PO STA (19:30)
--- NOTE | 2020-01-15 19:33 | ED Physician Documentation ---
History of Present Illness - Stated complaint Stated Complaint: COUGH, FACIAL PAIN - Chief complaint Chief Complaint: Resp - History obtained from History obtained from: Patient - History of Present Illness Timing: How many weeks ago (2) Pain level max: 3 Pain level now: 2 - Additonal information Additional information: 35-year-old female presents to the emergency department with a dry cough for the past 2 to 3 weeks. Has developed sinus pain and congestion over the past week. Nothing makes it better or worse. No fevers. No chills. No Covid exposure. She is currently breast-feeding. Review of Systems Constitutional: denies: Fever, Chills Nose: reports: Congestion, Sinus pressure / pain Throat: denies: Sore throat Cardiac: denies: Chest pain / pressure Respiratory: reports: Cough (dry). 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: Yes Does the pt have substance abuse?: No - Immunizations Immunizations are current?: Yes - POLST Patient has POLST: No PD ED PE NORMAL - Vitals Vital signs reviewed: Yes - General General: Alert and oriented X 3, No acute distress - HEENT HEENT: Ears normal, Moist mucous membranes, Other (Tender to palpation over the frontal and maxillary sinuses, left greater than right. Inflammation of the nasal turbinates present) - Neck Neck: Supple, no meningeal sign - Cardiac Cardiac: RRR - Respiratory Respiratory: No respiratory distress, Clear bilaterally - Abdomen Abdomen: Soft, Non tender, Non distended - Derm Derm: Warm and dry - Neuro Neuro: Alert and oriented X 3 Results - Vitals Vitals: Vital Signs - 24 hr 01/15/20 19:10 Temperature 36.6 C Heart Rate 76 Respiratory 16 Rate Blood Pressure 137/89 H O2 Saturation 96 Oxygen O2 Source Room air PD MEDICAL DECISION MAKING - ED course Complexity details: considered differential, d/w patient ED course: Patient with what appears to be acute sinusitis. Will place on antibiotics. She is breast-feeding. Patient is well-appearing, nontoxic. Afebrile. No evidence of pneumonia. No Covid exposure. No fever. Patient counseled regarding signs and symptoms for which I believe and urgent re-evaluation would be necessary. Patient with good understanding of and agreement to plan and is comfortable going home at this time This document was made in part using voice recognition software. While efforts are made to proofread this document, sound alike and grammatical errors may occur. Departure - Departure Disposition: 01 Home, Self Care Clinical Impression: Sinusitis Qualifiers: Sinusitis location: pansinusitis Chronicity: acute Recurrence: non-recurrent Qualified Code(s): J01.40 - Acute pansinusitis, unspecified Condition: Good Instructions: ED Sinusitis Abx Tx Follow-Up: your,doctor in 1 week [Other] Prescriptions: Amox/Clav 875/125 [Augmentin] 1 tab PO Q12H #20 tablet Comments: Take all antibiotics until gone. Return if you worsen. Follow-up with your doctor in 1 week if not better.
[2020-01-15 19:46] VITALS: BP 133/80
== END 2020-01-15 19:45 | disposition home or self-care (01) ==
LOC: ED 19:05
DX: J01.40 Acute pansinusitis, unspecified (principal)
CPT/HCPCS: 99282; 99284; A9270

== ENCOUNTER 2020-10-15 08:00 | Outpatient (CLI) | payer MEDICAID | END 2020-10-15 23:59 | disposition home or self-care (01) | LOC: LAB.N 08:00 | PROVIDERS: ATTEND Physician Assistant Medical | DX: R53.81 Other malaise (principal); R53.83 Other fatigue; Z20.822 Contact with and (suspected) exposure to COVID-19 ==

== ENCOUNTER 2021-06-11 09:14 | Outpatient (CLI) | payer MEDICAID ==
[2021-06-11 12:29] LABS: BASOPHILS % (AUTO) 0.5 %; EOSINOPHILS # (AUTO) 0.1 10^3/uL (0.0-0.7); EOSINOPHILS % (AUTO) 1.4 %; HCT - HEMATOCRIT 42.9 % (37.0-47.0); HGB - HEMOGLOBIN 14.1 g/dL (12.0-16.0); LYMPHOCYTES # (AUTO) 1.9 10^3/uL (1.5-3.5); LYMPHOCYTES % (AUTO) 29.7 %; MEAN CORPUSCULAR HEMOGLOBIN 30.8 pg (27.0-31.0); MEAN CORPUSCULAR HGB CONC 32.9 g/dL (32.0-36.0); MEAN CORPUSCULAR VOLUME 93.7 fL (81.0-99.0); MEAN PLATELET VOLUME 10.6 fL (7.9-10.8); MONOCYTES # (AUTO) 0.4 10^3/uL (0.0-1.0); MONOCYTES % (AUTO) 6.1 %; NEUTROPHILS % (AUTO) 62.1 %; PLT - PLATELET COUNT 329 10^3/uL (130-450); RED BLOOD COUNT 4.58 10^6/uL (4.20-5.40); RED CELL DISTRIBUTION WIDTH 14.1 % (12.0-15.0); WHITE BLOOD COUNT 6.4 x10^3/uL (4.8-10.8)
[2021-06-11 13:17] LABS: ESTIMATED AVERAGE GLUCOSE 105 mg/dL (70-100); HEMOGLOBIN A1c% 5.3 % (4.27-6.07)
[2021-06-11 13:25] LABS: ALBUMIN 3.8 g/dL (3.2-5.5); ALBUMIN/GLOBULIN RATIO 1.1 (1.0-2.2); ALKALINE PHOSPHATASE 58 IU/L (42-121); ALT ALANINE AMINOTRANSFERASE 15 IU/L (10-60); AST ASPARTATE AMINOTRANSFERASE 17 IU/L (10-42); BILIRUBIN,TOTAL 0.7 mg/dL (0.2-1.0); BUN - BLOOD UREA NITROGEN 11 mg/dL (6-20); CALCIUM 8.9 mg/dL (8.5-10.3); CARBON DIOXIDE - CO2 27 mmol/L (21-32); CHLORIDE 105 mmol/L (101-111); CHOL/HDL RATIO 4.1 (<4.4); CHOLESTEROL 195 mg/dL; CREATININE 0.8 mg/dL (0.4-1.0); GFR - MDRD 81 (>89); GLUCOSE 107 mg/dL (70-100); HDL CHOLESTEROL 48 mg/dL; LDL CHOLESTEROL,CALCULATED 125 mg/dL; LDL/HDL RATIO 2.6 (<4.4); POTASSIUM 4.5 mmol/L (3.5-5.0); SODIUM 140 mmol/L (135-145); TOTAL PROTEIN 7.2 g/dL (6.7-8.2); TRIGLYCERIDES 109 mg/dL; VLDL CHOLESTEROL 22 mg/dL
[2021-06-11 13:31] LABS: THYROID STIMULATING HORMONE 4.21 uIU/mL (0.34-5.60)
== END 2021-06-11 09:15 | disposition home or self-care (01) ==
LOC: LAB.N 09:14
PROVIDERS: ATTEND Nurse Practitioner Family
DX: F41.8 Other specified anxiety disorders (principal); Z68.45 Body mass index [BMI] 70 or greater, adult; Z13.220 Encounter for screening for lipoid disorders; Z13.21 Encounter for screening for nutritional disorder; Z13.1 Encounter for screening for diabetes mellitus; Z13.29 Encounter for screening for other suspected endocrine disorder
CPT/HCPCS: 36415; 80053; 80061; 82306; 83036; 83721; 84443; 85025

== ENCOUNTER 2021-06-11 22:23 | Outpatient (CLI) | payer MEDICAID ==
--- NOTE | 2021-06-12 15:29 | Ultrasound Report ---
PROCEDURE: Pelvic w/Transvaginal INDICATIONS: ABN UTERINE BLEEDING TECHNIQUE: Real-time scanning was performed of the pelvic organs, with image documentation. Additional endovagi nal scanning was necessary due to incomplete visualization of the adnexal and endometrial structures by transabdominal scanning. COMPARISON: None. FINDINGS: Markedly limited exam secondary to patient body habitus. Limited scanning through the kidneys shows no hydronephrosis. No pathologic free abdominal or pelvic fluid. Uterus: Uterus is enlarged in size at 13.6 x 5.1 x 7.6 cm. The endometrium measures 9.9 mm in combi vitaliy thickness. Ovaries: None visualized IMPRESSION: Markedly limited exam. Ovaries are not visualized. The uterus appears enlarged without focal mass. Endometrial demonstrates no focal mass. Reviewed by: Radha Doan MD on 06/12/2021 3:28 PM PDT Approved by: Radha Doan MD on 06/12/2021 3:28 PM PDT Station ID: [id number]
== END 2021-06-11 22:24 | disposition home or self-care (01) ==
LOC: DI 22:23
PROVIDERS: ATTEND Obstetrics & Gynecology
DX: N93.8 Other specified abnormal uterine and vaginal bleeding (principal); Z80.49 Family history of malignant neoplasm of other genital organs; Z68.45 Body mass index [BMI] 70 or greater, adult; N85.2 Hypertrophy of uterus

== ENCOUNTER 2022-01-04 18:50 | Emergency (ER) | payer MEDICAID ==
[2022-01-04] MEDS ORDERED: guaiFENesin/DEXTROMETHORPHAN 10 ML UDC PO STA (20:33)
--- NOTE | 2022-01-04 20:35 | ED Physician Documentation ---
PD HPI URI - Stated complaint Stated Complaint: FEVER, COUGH, VOMIT - Chief complaint Chief Complaint: Resp - History obtained from History obtained from: Patient - Additional information Additional information: Patient is a 36-year-old female with no significant past medical history presenting for evaluation of cough and congestion that have been present for 1 week.She is here with 2 other family members with similar symptoms and also has a child at home that recently recovered from a viral infection.The cough is productive of clear sputum. She denies chest pain or difficulty breathing. She denies fevers, abdominal pain or dysuria.She has taken some [place] without significant improvement in her symptoms. Review of Systems Nose: reports: Congestion Cardiac: denies: Chest pain / pressure Respiratory: reports: Cough. 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 BILL PROCESSOR: None : None HEENT: None Psych: Depression Musculoskeletal: None Derm: None - Past Surgical History Past Surgical History: Yes General: Cholecystectomy /MEDICAL BILL PROCESSOR: section - Present Medications Home Medications: Ambulatory Orders Medication Instructions Recorded Confirmed Amox/Clav 875/125 [Augmentin] 1 tab PO Q12H #20 tablet 01/15/20 Citalopram Hydrobromide [Celexa] 40 mg PO DAILY 01/15/20 01/15/20 guaiFENesin/DEXTROMETHORPHAN 10 ml PO Q6H PRN #120 ml 01/04/22 [Robitussin Dm] - Allergies Allergies/Adverse Reactions: Allergies Allergy/AdvReac Type Severity Reaction Status Date / Time No Known Drug Allergies Allergy Verified 01/04/22 19:12 - Social History Does the pt smoke?: No Smoking Status: Never smoker Does the pt drink ETOH?: Yes Does the pt have substance abuse?: No - Immunizations Immunizations are current?: Yes - POLST Patient has POLST: No PD ED PE NORMAL - General General: Alert and oriented X 3, No acute distress, Well developed/nourished - HEENT HEENT: Atraumatic, Moist mucous membranes, Pharynx benign - Neck Neck: Supple, no meningeal sign - Cardiac Cardiac: RRR, Strong equal pulses - Respiratory Respiratory: No respiratory distress, Clear bilaterally - Abdomen Abdomen: Soft, Non tender - Derm Derm: Warm and dry - Neuro Neuro: Normal speech Results - Vitals Vitals: Vital Signs - 24 hr 01/04/22 01/04/22 19:09 20:48 Temperature 36.2 C L 36.5 C Heart Rate 79 80 Respiratory 16 16 Rate Blood Pressure 145/90 H 130/60 O2 Saturation 97 99 Oxygen O2 Source Room air PD MEDICAL DECISION MAKING - ED course ED course: Patient with URI symptomsFor 1 week. Presenting with 2 other family members with similar symptoms. Her vital signs here are stable, lung sounds are clear with no wheezing or rhonchi.Clinically I suspect a viral process given her symptoms as well as sick contacts.I offered a respiratory swab The patient declined and prefers to use a home COVID test. I encouraged continued supportive care as well as reviewed concerning symptoms to return for. Departure - Departure Disposition: Home, Self Care Clinical Impression: URI, acute Condition: Stable Instructions: ED Viral Syndrome Prescriptions: guaiFENesin/DEXTROMETHORPHAN [Robitussin Dm] 10 ml PO Q6H PRN #120 ml PRN Reason: Cough Comments: Your symptoms are likely related to a viral infection. Fortunately your vital signs are stable and your lungs sound clear.I would recommend taking a COVID t est at home as you have opted not to have one done here today. I have sent a prescription for cough medication to the [facility] in [place]. Please continue with hydration and getting plenty of rest. If any worsening symptoms such as labored breathing please consider return to the ER. Discharge Date/Time: 01/04/22 20:48
[2022-01-04 20:49] VITALS: BP 130/60
== END 2022-01-04 20:48 | disposition home or self-care (01) ==
LOC: ED 18:50
DX: J06.9 Acute upper respiratory infection, unspecified (principal)
CPT/HCPCS: 99282; A9270